=== PATIENT | female | born 1990 | race Two or more races ===

== ENCOUNTER 2017-07-22 15:50 | Emergency (ER) | payer SELFPAY ==
[~2017-07-22] VITALS: Ht 154.9 cm; Wt 99.8 kg
--- NOTE | 2017-07-22 15:58 | NUR ---
PATIENT TO ED DT ON/OFF CHEST PAIN RADIATING TO LEFT ARM AND BACK X 3 DAYS. PT IS AAO4, APPEARS IN NO DISTRESS. RESPIRATION EVEN AND UNLABORED. SKIN IS WARM TO TOUCH AND NON DIAPHORETIC. PATIENT IS AFEBRILE.
[2017-07-22] MEDS ORDERED: ONDANSETRON HCL/PF 4 MG/2 ML VIAL ONE (16:41)
[2017-07-22] MEDS ORDERED: MORPHINE SULFATE INJ 4 MG/ML DISP.SYRIN ONE (16:42)
[2017-07-22 16:55] LABS: BASOPHILS # (AUTO) 0.1 /CMM (0.0-0.2); EOSINOPHILS # (AUTO) 0.2 /CMM (0.0-0.7); HEMOGLOBIN 14.3 g/dL (11.5-14.8); MONOCYTES # (AUTO) 0.6 /CMM (0.1-1.30)
[2017-07-22 17:00] LABS: BASOPHILS % (AUTO) 1.4 % (0.0-2.0); EOSINOPHILS % (AUTO) 1.8 % (0.0-6.0); HEMATOCRIT 42 % (33-45); LYMPHOCYTES # (AUTO) 2.7 /CMM (0.8-4.8); LYMPHOCYTES % (AUTO) 32.4 % (20.0-44.0); MEAN CORPUSCULAR HEMOGLOBIN 27 PG (26.0-33.0); MEAN CORPUSCULAR HGB CONC 34 g/dl (31.0-36.0); MEAN CORPUSCULAR VOLUME 81 fL (82-100); MONOCYTES % (AUTO) 6.6 % (2.0-12.0); NEUTROPHILS # (AUTO) 4.8 /CMM (1.8-8.9); NEUTROPHILS % (AUTO) 57.8 % (43.0-81.0); PLATELET COUNT (AUTO) 306 /CMM (150-450); RDW COEFFICIENT OF VARIATION 13.5 (11.5-15.0); RED BLOOD CELL COUNT(AUTO) 5.22 MIL/uL (4.0-5.2); WHITE BLOOD COUNT (AUTO) 8.4 K/uL (4.3-11.0)
[2017-07-22] MEDS ORDERED: ONDANSETRON HCL/PF 4 MG/2 ML VIAL IVP ONE (17:00)
[2017-07-22] MEDS ORDERED: MORPHINE SULFATE INJ 2 MG/ML DISP.SYRIN IV ONE (17:00)
[2017-07-22] MEDS ORDERED: IV NS 0.9% 1,000 ML BAG IV ONE (17:00)
[2017-07-22 17:04] LABS: CARBON DIOXIDE 24 mmol/L (21-32); CHLORIDE 106 mmol/L (98-107); CREATININE 0.8 mg/dL (0.6-1.3); GLUCOSE 108 mg/dL (74-106); POTASSIUM 4.1 mmol/L (3.5-5.1); SODIUM SERUM 138 mmol/L (136-145); UREA NITROGEN, BLOOD 9 mg/dL (7-18)
[2017-07-22 17:12] LABS: TROPONIN I < 0.017 ng/mL (0.00-0.056)
[2017-07-22 17:15] LABS: ALANINE AMINOTRANSFERASE 43 U/L (12-78); ALBUMIN 3.3 g/dL (3.4-5.0); ALKALINE PHOSPHATASE 81 U/L (46-116); ASPARTATE AMINOTRANSFERASE 35 U/L (15-37); BILIRUBIN,DIRECT 0.1 mg/dL (0.0-0.2); BILIRUBIN,TOTAL 0.3 mg/dL (0.2-1.0); TOTAL PROTEIN, SERUM 7.7 g/dL (6.4-8.2)
[2017-07-22 17:27] LABS: D-DIMER 0.29 mg/L(FEU (0.17-0.50); INR 0.91 (0.87-1.13)
[2017-07-22 17:55] VITALS: BP 136/88
--- NOTE | 2017-07-22 17:56 | NUR ---
Patient discharged to home in stable condition. Written and verbal after care instructions given. Patient verbalizes understanding of instruction.IV removed. Catheter intact and site benign. Pressure and 4x4 applied to site. No bleeding noted.
== END 2017-07-22 17:57 | disposition home or self-care (01) ==
LOC: ER 15:53
DX: J18.9 Pneumonia, unspecified organism (principal); I10 Essential (primary) hypertension
CPT/HCPCS: 36415; 71045-TC; 80048-TC; 80076-TC; 80305; 84443-TC; 84484-TC; 84703-TC; 85025-TC; 85378-TC; 85730-TC; A4606; J2270; J2405; J7030; Z7610

== ENCOUNTER 2017-08-03 07:53 | Emergency (ER) | payer SELFPAY ==
[~2017-08-03] VITALS: Ht 154.9 cm; Wt 99.8 kg
[2017-08-03 08:00] VITALS: BP 169/85
--- NOTE | 2017-08-03 08:05 | NUR ---
PATIENT TO ED CHEST CONGESTION AND COUGH. PATIENT COMPLETED COURSE OF ATB LAST SUNDAY, REPORTED NO IMROVEMENT, PATIENT SATING WELL. APPEARS IN NO DISTRESS. RESPIRATION EVEN AND UNLABORED. SKIN IS WARM TO TOUCH AND NON DIAPHORETIC. PATIENT IS AFEBRILE. VSS
== END 2017-08-03 08:43 | disposition home or self-care (01) ==
LOC: ER 07:54
DX: J32.9 Chronic sinusitis, unspecified (principal); G47.00 Insomnia, unspecified; R05 Cough; R09.81 Nasal congestion
CPT/HCPCS: A4606; Z7610

== ENCOUNTER 2018-01-10 18:57 | Emergency (ER) | payer MEDICAID, OTHER ==
[~2018-01-10] VITALS: Ht 154.9 cm; Wt 99.8 kg
--- NOTE | 2018-01-10 19:38 | NUR ---
BIB SELF. PT AA/OX4 COMPLAINING OF HIGH BLOOD PRESSURE X 1MONTH. "I WENT TO THE DENTIST AND THEY SAID I HAVE HIGH BLOOD PRESSURE AND TO GET CHECKED." AMBULATED TO HOSPITAL BED WITH STEADY GAIT. EQUAL BETTING CLERKS AND FACIAL SYMMETRY. NO COMPLAINTS OF RINGING IN THE EARS. NO N/V. SKIN PINK, WARM, AND DRY. NAD. VSS. STABLE CONDITION. WILL CONTINUE TO MONITOR. MD AT BEDSIDE FOR EVAL.
[2018-01-10 19:46] VITALS: BP 133/82
== END 2018-01-10 19:53 | disposition home or self-care (01) ==
LOC: ER 19:01
DX: I10 Essential (primary) hypertension (principal); J06.9 Acute upper respiratory infection, unspecified; F41.9 Anxiety disorder, unspecified
CPT/HCPCS: 99281; A4606; Z7610; Z7502